=== PATIENT | male | born 1990 ===

== ENCOUNTER 2022-11-23 08:12 | Outpatient (CLI) | payer OTHER, SELFPAY ==
--- NOTE | 2022-12-06 16:54 | WPDHOMESLEEP ---
Sleep Study - Home Unattended Date of Study: 11/23/22 Ordering Provider: Risa Valdez, LO[employer]TER- Interpreting Provider: Lori Handley, DO Home Sleep Study Type: Watch PAT Height: 1.68 m Weight: 158.757 kg Body Mass Index: 56.5 Neck Circumference (inches): 19 [place]: 7 Reason for Sleep Study Snoring, witnessed apneas Sleep History The patient is a 32-year-old male with hypertension, heart murmur and GERD that had a sleep study ordered by his primary care for evaluation of sleep apnea. He denies awakening from sleep short of breath. He denies awakening at night with heartburn, belching or cough. He constantly snores loudly enough that others complain. He frequently has trouble sleeping when he has a cold. He denies waking up gasping for air throughout the night. He constantly has breathing problems at night observed by himself or others. He denies sweating excessively at night. He denies having heart palpitations or irregular heartbeats during the night. He denies falling asleep during the day and denies falling asleep while driving. He denies sleep paralysis, cataplexy and hypnagogic / hypnopompic hallucinations. He denies having trouble at school or work due to sleepiness. He denies feeling afraid of to sleep. He rarely has nightmares and rarely remembers his dreams. He occasionally has thoughts racing through his mind. He rarely feels sad or depressed. He rarely has anxiety. He denies having muscular tension. He rarely notices parts of his body jerk. He denies kicking during the night. He occasionally has crawling and aching feelings in his legs but denies having leg pain during the night. He rarely grinds his teeth during sleep but never awakens with morning jaw pain. He is occasionally bothered by pain during the day but never awakened by pain during the night. He frequently wakes up feeling stiff in the morning. He frequently wakes up with sore and achy muscles. He frequently wakes up with pain neck, spine or other joints. He goes to bed between 11:00 p.m. to 1:00 a.m. on weekdays and between 10:00 p.m. to be a night on the weekends. It takes him 5 minutes to fall asleep. He wakes up 1-2 times throughout the night to urinate and is able to fall back asleep within 5 minutes. He wakes up between 4-8 a.m. on weekdays and between 7-9 a.m. on the weekends. He typically gets 6-8 hours of sleep per night. He does not stay in bed after waking up in the morning. He currently lives with his girlfriend and her child. He denies consuming any caffeinated beverages within 2 hours of bedtime. He denies engaging in physical exercise before bedtime. He will watch television before falling asleep. He will take naps in the afternoon or the evening and they are refreshing. He consumes 1 caffeinated beverage per day. He denies tobacco, alcohol and recreational drug use. Sleep Procedure The sleep study was completed using [employer] a technically adequate device with seven channels: peripheral arterial tone, actigraphy, body position, snore, respiratory movement, pulse oximetry, sleep staging, and heart rate. Prior to using the device, the patient received verbal and written instructions for its application and was provided with the help desk phone number for additional telephonic instruction with 24-hour availability of qualified personnel to answer questions. The study was scored using CMS guidelines. Sleep Architecture The patient had a total recording time of 7 hours 46 minutes and a total sleep time of 7 hours 8 minutes. The sleep efficiency was 91.85%. The sleep latency was 19 minutes and the REM latency was 76 minutes. The patient had 9 awakenings. The patient spent 43.59% of total sleep time in light sleep, 29.08% of total sleep time in deep sleep and 27.33% of total sleep time in REM sleep. The patient spent 414 minutes, 96.7% of total sleep time in the supine position. Respiratory Analysis The patient had an overall
[2022-12-06 16:57] VITALS: BMI 56.5
== END 2022-11-24 13:25 | disposition home or self-care (01) ==
PROVIDERS: Visit Provider Nurse Practitioner Family
DX: G47.10 Hypersomnia, unspecified (principal); G47.33 Obstructive sleep apnea (adult) (pediatric)
CPT/HCPCS: 95800

== ENCOUNTER 2022-12-28 11:13 | Outpatient (CLI) | payer OTHER, SELFPAY ==
--- NOTE | 2023-01-11 17:20 | WPDSLEEPSTUD ---
Sleep Study Date of Study: 12/28/22 Ordering Provider: Risa Valdez, [facility]- Interpreting Physician: Rosie Faustin MD Sleep Study Type: CPAP Titration Height: 1.68 m Weight: 158.757 kg Body Mass Index: 56.5 Neck Circumference (inches): 19 [place]: 7 Reason for Sleep Study * 11/23/2022- homse sleep test using WatchPat showed AHI of 45.6, desaturation 52%; severe sleep apnea. He had 51 central apneas resulting in a central apnea index of 7.3 which is elevated. He presents now for a CPAP titration. Sleep History Caden Tamayo is a 32-year-old male with hypertension, heart murmur and GERD who had a home sleep test 11/23/2022 showing severe obstructive sleep apnea with a central AHI of 7.3. He denies awakening from sleep short of breath or waking at night with heartburn, belching or coughing. He constantly snores loudly enough that others complain. He frequently has trouble sleeping when he has a cold. He denies sweating excessively at night or noticing palpitations or irregular heartbeats during the night. He denies falling asleep during the day and denies falling asleep while driving. He denies sleep paralysis, cataplexy and hypnagogic / hypnopompic hallucinations. He denies having trouble at work due to sleepiness. He denies feeling afraid of to sleep. He rarely has nightmares and rarely remembers his dreams. He occasionally has thoughts racing through his mind. He rarely feels sad or depressed. He rarely has anxiety. He denies having muscular tension. He rarely notices parts of his body jerk. He denies kicking during the night. He occasionally has crawling and aching feelings in his legs but denies having leg pain during the night. He rarely grinds his teeth during sleep but never awakens with morning jaw pain. He is occasionally bothered by pain during the day but never awakened by pain during the night. He frequently wakes up feeling stiff in the morning. He frequently wakes up with sore and achy muscles. He frequently wakes up with pain neck, spine or other joints. He goes to bed between 11:00 p.m. to 1:00 a.m. on weekdays and between 10:00 p.m. to be a night on the weekends. It takes him 5 minutes to fall asleep. He wakes up 1-2 times throughout the night to urinate and is able to fall back asleep within 5 minutes. He wakes up between 4-8 a.m. on weekdays and between 7-9 a.m. on the weekends. He typically gets 6-8 hours of sleep per night. He does not stay in bed after waking up in the morning. He currently lives with his girlfriend and her child. He will take naps in the afternoon or the evening and they are refreshing. He consumes 1 caffeinated beverage per day. He denies tobacco, alcohol and recreational drug use. Sleep Procedure A full CPAP polysomnogram using the [employer] multi-channel system recorded the standard physiologic parameters including EEG, EOG, submentalis EMG, anterior tibialis EMG, EKG, body position, nasal and oral airflow using nasal pressure sensor and thermistor. Respiratory parameters of chest and abdominal movements were recorded with Respiratory Inductance Plethysmography belts. Oxygen saturation was recorded by pulse oximetry. Video monitoring was also performed. Sleep stages, periodic limb movements, and EEG arousals were scored in 30 second epochs according to the criteria of the AASM Scoring Manual. The Apnea-Hypopnea Index was calculated using CMS guidelines for definition of hypopnea while scoring respiratory events. The patient was started on CPAP using using a medium ResMed AirFit F30 I mask and heated humidity, initial pressure was CPAP 5 cm, gradually titrated by 1 cm increments up to a maximum of 15 cm water pressure. The patient had supine REM at 15 cm. Sleep efficiency dropped off at this point. The pressure was lowered to 10 cm with improvement in sleep efficiency. The optimal pressure is 14 cm. At this pressure, the patient spent 126 minutes in bed, 11 minutes awake,
[2023-01-11 17:56] VITALS: BMI 56.5
== END 2022-12-29 07:43 | disposition home or self-care (01) ==
LOC: ANHCSM 11:13
PROVIDERS: Visit Provider Nurse Practitioner Family
DX: G47.10 Hypersomnia, unspecified (principal); G47.33 Obstructive sleep apnea (adult) (pediatric)
CPT/HCPCS: 95811